=== PATIENT | female | born 1975 | race Caucasian/White ===

== ENCOUNTER 2024-05-15 06:26 | Day surgery (SDC) | payer BC, SELFPAY | END 2024-05-15 14:52 | disposition home or self-care (01) | LOC: GI 06:26 | PROVIDERS: ATTENDING PHYSICIAN Internal Medicine; FAMILY PHYSICIAN Physician Assistant Medical | DX: Z12.11 Encounter for screening for malignant neoplasm of colon (principal); K57.30 Diverticulosis of large intestine without perforation or abscess without bleeding; K63.89 Other specified diseases of intestine; K62.1 Rectal polyp; K51.40 Inflammatory polyps of colon without complications; Z86.0100 Personal history of colon polyps, unspecified; Z83.719 Family history of colon polyps, unspecified | CPT/HCPCS: 45385; 45380; 88305 ==